=== PATIENT | female | born 1995 | race African-American/Black ===

== ENCOUNTER 2017-08-26 09:52 | Emergency (ER) | payer BC ==
[~2017-08-26] VITALS: Ht 177.8 cm; Wt 86.0 kg
[2017-08-26 09:55] VITALS: TEMP 37.1; Ht 177.8 cm; Wt 86.0 kg
[2017-08-26] MEDS ORDERED: VITACAP26 PO (10:34)
[2017-08-26] MEDS ORDERED: VITA1TAB12 PO (10:34)
[2017-08-26] MEDS ORDERED: PRED20TA PO (10:36)
--- NOTE | 2017-08-26 10:37 | EMERGENCY ROOM VISIT NOTE ---
History Report prepared by Amy: Nikhil Quiñones Under the Supervision of: Dr. Godfrey Lord D.O. First contact with patient: 10:00 Chief Complaint: BELLS PALSY SYMPTOMS Stated Complaint: LEFT SIDE OF FACE FEELS SWOLLEN, CAN'T MOVE MUC Nursing Triage Summary: has weakness in left side of face since yesterday no injury no dental pain able to blink eye but not symmetrical smile History of Present Illness The patient is a 22 year old female who presents to the Emergency Room with complaints of numbness, loss of function of the left side of her face that she first noticed yesterday morning. The patient states that she is currently having trouble moving the left side of her face and that it feels "puffier" than usual. She adds that she did develop a fever and sinus pressure about one week ago. The fever has resolved but she is still experiencing some upper respiratory congestion. She is taking OTC medication for these symptoms that is helping. She has not had any sorethroat. Source of History: patient Onset: yesterday morning Position: head (left sided face) Quality: numbness, other (weakness) Note: Swelling to the left side of the face. Review of Systems See HPI for pertinent positives & negatives. A total of 10 systems reviewed and were otherwise negative. Past Medical & Surgical Medical Problems: (1) Eczema Family History Hypertension Social History Marital Status: single Housing Status: lives with roommate Occupation Status: student Current/Historical Medications Scheduled Prednisone (Prednisone), 3 TAB PO DAILY Vitamin E (Vitamin E), 1 TAB PO DAILY Vitamins C & E (Vitamin C), 1 CAP PO DAILY Allergies Coded Allergies: No Known Allergies (Unverified , 08/26/17) Physical Exam Vital Signs Date Time Temp Pulse Resp B/P (MAP) Pulse Ox O2 Delivery O2 Flow Rate FiO2 08/26/17 10:42 71 18 124/79 100 08/26/17 09:55 37.1 99 16 153/74 100 Physical Exam VITAL SIGNS: were reviewed as above. GENERAL:Non-toxic in appearance. SKIN: Warm dry and pink. HEAD: Normocephalic and atraumatic. OROPHARYNX: Is clear and moist NECK: Supple without lymphadenopathy or meningismus. LUNGS: clear. HEART: Regular rate and rhythm. ABDOMEN: Soft and nontender. EXTREMITIES: Warm and well perfused. NEUROLOGICALLY: Awake alert and oriented without focal deficit. Cranial nerves 2 -12 are intact. There is no pronator drift. Cerebellar testing is within normal limits. There is no nystagmus. There is no facial droop. Speech is clear. Vision is grossly normal. She has mild weakness related to her smile, and mild weakness with raising the left forehead. Patient is able to completely blink and keep her eye closed at rest. MUSCULOSKELETAL: Good muscle tone. No evidence of trauma. Medical Decision & Procedures Medications Administered Medications (Trade) Dose Ordered Sig/Brandon Route Start Time Stop Time Status Last Admin Dose Admin Prednisone (PredniSONE TAB) 60 mg NOW STAT PO 08/26/17 10:22 08/26/17 10:25 DC 08/26/17 10:33 60 MG ED Course 1006: Previous medical records were reviewed. The patient was evaluated in room B7. A complete history and physical examination was performed. 1022: Ordered Prednisone 60 mg PO. 1102:: On reevaluation, the patient is resting in bed. I discussed the results and findings with the patient. She verbalized agreement of the treatment plan. The patient was discharged home. Medical Decision Differential includes CVA, Hernandez's palsy, infection, dental issue. This is a 22-year-old female who presents to the ED with a chief complaint of left-sided facial weakness that started yesterday. She states that initially felt like heaviness. The patient had some upper respiratory symptoms with a congestion or rhinorrhea last week. She was also sneezing. The patient's vital signs here reveal slight hypertension. Her physical exam reveals some mild left-sided facial weakness including mild left upper facial and left lower facial weakness. She is able to blink her eye adequately and her eye stays closed with mild closing of the eyes. There is no abnormalities in the oropharynx. Her tympanic members are clear and the external auditory membranes are clear. There is no lymphadenopathy. His no weakness elsewhere. The patient was felt to have Hernandez's palsy and started on prednisone. She was discharged on this with the anticipation of improvement over the next week. Medication Reconcilliation Current Medication List: was personally reviewed by me Blood Pressure Screening Patient's blood pressure: Normal blood pressure Impression Primary Impression: Hernandez's palsy Scribe Attestation The scribe's documentation has been prepared under my direction and personally reviewed by me in its entirety. I confirm that the note above accurately reflects all work, treatment, procedures, and medical decision making performed by me. Departure Information Dispostion Home / Self-Care Prescriptions Prednisone (Prednisone) 20 Mg Tab 3 TAB PO DAILY for 6 Days, #18 TAB Prov: Godfrey Lord D.O. 08/26/17 Referrals No Doctor, Assigned (PCP) Patient Instructions ED [place] [facility], [facility] Additional Instructions Prednisone: 60 mg daily for the next 6 days. You were given a dose already today. Start this tomorrow. Anticipate improvement over the next week. Use synthetic eyedrops for the left eye if you develop dryness of the left eye or feel that your eyes not completely closing while sleeping. Follow-up with your doctor for further care and evaluation in 1-2 days. Return to the emergency department for worsening or new symptoms or any concerns. You have been examined and treated today on an emergency basis only. This is not a substitute for, or an effort to provide, complete comprehensive medical care. It is impossible to recognize and treat all injuries or illnesses in a single emergency department visit. It is therefore important that you follow up closely with your doctor. Call as soon as possible for an appointment.
[2017-08-26 10:42] VITALS: BP 124/79; PULSE 71; O2SAT 100
== END 2017-08-26 10:43 | disposition home or self-care (01) ==
LOC: C.EDB 09:54
DX: G51.0 Bell's palsy (principal); L30.9 Dermatitis, unspecified; Z82.49 Family history of ischemic heart disease and other diseases of the circulatory system